=== PATIENT | female | born 1990 | race Caucasian/White ===

== ENCOUNTER 2016-12-11 14:37 | Emergency (ER) | payer BC, OTHER ==
[2016-12-11 15:26] VITALS: BP 127/68
--- NOTE | 2016-12-11 16:15 | UC ---
Throat Pain/Nasal Gonzalo HPI - HPI Summary HPI Summary: one week history of nasal congestion and enlarged lymph nodes. Fever today, cough is worsening, has a purulent nasal discharge. - History of Current Complaint Chief Complaint: UCGeneralIllness Stated Complaint: FLU SYMPTOMS Time Seen by Provider: 12/11/16 16:03 Hx Obtained From: Patient Hx Last Menstrual Period: 11/14/16 ?: No Onset/Duration: Gradual Onset, Lasting Days - 7 Severity: Moderate Cough: Productive - yellow Associated Signs & Symptoms: Positive: Hoarseness, Sinus Discomfort Related History: Seasonal Allergies - Epiglottits Risk Factors Epiglottis Risk Factors: Negative - Allergies/Home Medications Allergies/Adverse Reactions: Allergies Allergy/AdvReac Type Severity Reaction Status Date / Time Acetaminophen [From Excedrin] Allergy Severe Tingling Verified 12/11/16 15:26 Aspirin [From Excedrin] Allergy Severe Tingling Verified 12/11/16 15:26 Caffeine [From Excedrin] Allergy Severe Tingling Verified 12/11/16 15:26 Home Medications: Home Medications Dextromethorphan-Phenylephrine [Donna-[place] Plus Day Col] 1 cap PO DAILY [History Confirmed 12/11/16] PMH/Surg Hx/FS Hx/Imm Hx Previously Healthy: Yes - Surgical History Surgical History: Yes Surgery Procedure, Year, and Place: tonsilectomy - Family History Known Family History: Positive: Hypertension - mother - Social History 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 Respiratory: Cough Cardiovascular: Negative Gastrointestinal: Negative Genitourinary: Other - near end of cycle, not using contraception. Motor: Negative Neurovascular: Negative Musculoskeletal: Negative Neurological: Negative Psychological: Negative All Other Systems Reviewed And Are Negative: Yes Physical Exam Triage Information Reviewed: Yes Vital Signs: Initial Vital Signs Temp 99.6 F 12/11/16 15:22 Pulse 87 12/11/16 15:22 Resp 16 12/11/16 15:22 BP 127/68 12/11/16 15:22 Pulse Ox 100 12/11/16 15:22 Eye Exam: Normal Eyes: Positive: Conjunctiva Clear ENT: Positive: Pharyngeal erythema - post nasal drainage, past tonsillectomy, TMs normal, Other: - percussive tenderness maxillary sinuses Dental Exam: Normal Neck: Positive: Supple, Enlarged Nodes @ - right tonsillare Respiratory Exam: Normal Cardiovascular Exam: Normal Cardiovascular: Positive: RRR, No Murmur Musculoskeletal Exam: Normal Neurological Exam: Normal Psychological Exam: Normal Skin Exam: Normal Throat Pain/Nasal Course/Dx - Course Course Of Treatment: amoxicillin for sinusitis, tessalon perles to suppress cough - Differential Dx/Diagnosis Differential Diagnosis/HQI/PQRI: Influenza, Otitis Media, Pharyngitis, Sinusitis Provider Diagnoses: acute bilateral maxillary sinusitis. Discharge - Discharge Plan Condition: Stable Disposition: HOME Prescriptions: Amoxicillin (*) 875 mg PO BID #20 tab Benzonatate CAP* [Tessalon CAP*] 100 mg PO TID PRN #30 cap PRN Reason: Cough Patient Education Materials: Sinusitis (ED) Additional Instructions: begin amoxicillin for treatment of sinusitis. Tessalon perles will help with cough, but you can continue use of donna seltzer products. Hot packs to the sinuses and hot showers might help.
== END 2016-12-11 16:38 | disposition home or self-care (01) ==
LOC: UCCORT 14:37
DX: J01.00 Acute maxillary sinusitis, unspecified (principal); Z88.6 Allergy status to analgesic agent
CPT/HCPCS: 87502; 99212; G0463

== ENCOUNTER 2018-12-23 13:55 | Emergency (ER) | payer OTHER ==
[2018-12-23 14:29] VITALS: BP 118/67
--- NOTE | 2018-12-23 15:17 | UC ---
Throat Pain/Nasal Gonzalo HPI - HPI Summary HPI Summary: patient has had two weeks of sinus congestion, right ear pain and a swollen gland under the right ear. denies fever. - History of Current Complaint Chief Complaint: UCGeneralIllness Stated Complaint: DOW,SINUS PRESSURE,RT GLAND SWOLLEN Time Seen by Provider: 12/23/18 14:46 Hx Obtained From: Patient Hx Last Menstrual Period: 12/03/18 ?: No Onset/Duration: Sudden Onset, Lasting Weeks - 2 Severity: Mild Pain Intensity: 0 - Allergies/Home Medications Allergies/Adverse Reactions: Allergies Allergy/AdvReac Type Severity Reaction Status Date / Time acetaminophen Allergy See Comment Verified 12/23/18 14:25 [From Excedrin Extra Strength] aspirin Allergy See Comment Verified 12/23/18 14:25 [From Excedrin Extra Strength] caffeine Allergy See Comment Verified 12/23/18 14:25 [From Excedrin Extra Strength] PMH/Surg Hx/FS Hx/Imm Hx Previously Healthy: Yes - Surgical History Surgical History: Yes Surgery Procedure, Year, and Place: tonsilectomy - Family History Known Family History: Positive: Hypertension - mother - Social History Alcohol Use: Occasionally Substance Use Type: None Smoking Status (MU): Never Smoked Tobacco Review of Systems All Other Systems Reviewed And Are Negative: Yes Constitutional: Positive: Fatigue Skin: Positive: Negative Eyes: Positive: Negative ENT: Positive: Sore Throat, Ear Ache, Nasal Discharge, Sinus Pain/Tenderness Respiratory: Positive: Cough Cardiovascular: Positive: Negative Gastrointestinal: Positive: Negative Genitourinary: Positive: Negative Motor: Positive: Negative Neurovascular: Positive: Negative Musculoskeletal: Positive: Negative Neurological: Positive: Negative Psychological: Positive: Negative, Anxious Physical Exam Triage Information Reviewed: Yes Appearance: Well-Nourished, Ill-Appearing, Pain Distress Vital Signs: Initial Vital Signs Temp 98.8 F 12/23/18 14:25 Pulse 82 12/23/18 14:25 Resp 16 12/23/18 14:25 BP 118/67 12/23/18 14:25 Pulse Ox 100 12/23/18 14:25 Vital Signs Reviewed: Yes Eye Exam: Normal ENT: Positive: Pharyngeal erythema, Nasal congestion, Nasal drainage, TM bulging , TM dull - right ear, Tonsillar swelling, Sinus tenderness Dental Exam: Normal Neck: Positive: Supple, Tenderness @ - under right ear, Enlarged Nodes @ - under right ear Respiratory Exam: Normal Cardiovascular Exam: Normal Abdominal Exam: Normal Bowel Sounds: Positive: Present Musculoskeletal Exam: Normal Neurological Exam: Normal Psychological Exam: Normal Skin Exam: Normal Throat Pain/Nasal Course/Dx - Course Course Of Treatment: hx obtained, exam performed ,meds reviewed, treated for right otitis and sinusitis - Differential Dx/Diagnosis Differential Diagnosis/HQI/PQRI: Influenza, Laryngitis, Otitis Media, Pharyngitis, Sinusitis, URI Provider Diagnosis: Right otitis media, Lymph node enlargement Discharge - Sign-Out/Discharge Documenting (check all that apply): Patient Departure All imaging exams completed and their final reports reviewed: No Studies - Discharge Plan Condition: Stable Disposition: HOME Prescriptions: Amoxicillin PO (*) [Amoxicillin 875 MG (*)] 875 mg PO BID #20 tab Patient Education Materials: Ear Infection (ED) Referrals: No Primary Care Phys,NOPCP [Primary Care Provider] - Additional Instructions: 1. take the medication as prescribed. 2. Increase fluid intake and get plenty of rest. 3. Take a daily Claritin for the next two weeks 4. Follow up if not improving. - Billing Disposition and Condition Condition: STABLE Disposition: Home - Attestation Statements Provider Attestation: Because the patient is A&Ox3, has no focal neurologic findings, no midline c- spine tenderness, no evidence of intoxication and no painful distracting injuries there is no need to obtain radiographic studies to evaluate the C- spinie.
== END 2018-12-23 15:22 | disposition home or self-care (01) ==
LOC: UCCORT 13:55
DX: H66.91 Otitis media, unspecified, right ear (principal); R59.0 Localized enlarged lymph nodes; R09.81 Nasal congestion; Z88.8 Allergy status to other drugs, medicaments and biological substances
CPT/HCPCS: 99212; G0463

== ENCOUNTER 2019-08-29 16:35 | Emergency (ER) | payer BC, OTHER ==
[2019-08-29 18:08] VITALS: BP 121/80
--- NOTE | 2019-08-29 18:18 | ED ---
Throat Pain/Nasal Congestion - HPI Summary HPI Summary: 28 yr old female with the complaint of sinus pressure, post nasal drip, mild cough. Onset of symptoms about three days. No fever. She has been exposed to ill exposures. No other complaints. - History of Current Complaint Chief Complaint: UCRespiratory Time Seen by Provider: 08/29/19 18:10 - Allergies/Home Medications Allergies/Adverse Reactions: Allergies Allergy/AdvReac Type Severity Reaction Status Date / Time acetaminophen Allergy See Comment Verified 08/29/19 18:02 [From Excedrin Extra Strength] aspirin Allergy See Comment Verified 08/29/19 18:02 [From Excedrin Extra Strength] caffeine Allergy See Comment Verified 08/29/19 18:02 [From Excedrin Extra Strength] Home Medications: Home Medications [id number]/Iron Fum/Folic/Docusate [ 19 Tablet] 1 tab DAILY 08/29/19 [ History Confirmed 08/29/19] PMH/Surg Hx/FS Hx/Imm Hx - Surgical History Surgery Procedure, Year, and Place: tonsilectomy Infectious Disease History: No Infectious Disease History: Denies: History Other Infectious Disease, Traveled Outside the in Last 30 Days - Family History Known Family History: Positive: Hypertension - mother - Social History Occupation: Employed Full-time Alcohol Use: Occasionally Substance Use Type: Reports: None Smoking Status (MU): Never Smoked Tobacco Review of Systems Constitutional: Negative Positive: Nasal Discharge Positive: Cough All Other Systems Reviewed And Are Negative: Yes Physical Exam Triage Information Reviewed: Yes Vital Signs On Initial Exam: Initial Vitals Temp Pulse Resp BP Pulse Ox 98.2 F 77 16 121/80 100 08/29/19 18:03 08/29/19 18:03 08/29/19 18:03 08/29/19 18:03 08/29/19 18:03 Vital Signs Reviewed: Yes Appearance: Positive: Well-Appearing, No Pain Distress Skin: Positive: Warm, Skin Color Reflects Adequate Perfusion Head/Face: Positive: Normal Head/Face Inspection Eyes: Positive: EOMI ENT: Positive: Normal ENT inspection Neck: Positive: Nontender Respiratory/Lung Sounds: Positive: Clear to Auscultation, Breath Sounds Present Cardiovascular: Positive: RRR. Negative: Murmur Abdomen Description: Positive: Nontender Musculoskeletal: Positive: Strength/ROM Intact Neurological: Positive: Sensory/Motor Intact, Alert, Oriented to Person Place, Time, CN Intact II-III, Normal Gait, Speech Normal Psychiatric: Positive: Normal - Lynn Coma Scale Best Eye Response: 4 - Spontaneous Best Motor Response: 6 - Obeys Commands Best Verbal Response: 5 - Oriented Coma Scale Total: 15 Diagnostics - Vital Signs Vital Signs Temp Pulse Resp BP Pulse Ox 08/29/19 18:03 98.2 F 77 16 121/80 100 - Laboratory Lab Statement: Any lab studies that have been ordered have been reviewed, and results considered in the medical decision making process. EENT Course/Dx - Course Course Of Treatment: 28 yr old with sinusitis. Rx with Augmentin. FU with PMD. - Diagnoses Provider Diagnoses: Sinusitis Discharge ED - Sign-Out/Discharge Documenting (check all that apply): Patient Departure All imaging exams completed and their final reports reviewed: No Studies - Discharge Plan Condition: Good Disposition: HOME Prescriptions: Amoxicillin/Clavulanate TAB* [Augmentin TAB 875*] 875 mg PO BID #20 tab Patient Education Materials: Sinusitis (ED) Referrals: No Primary Care Phys,NOPCP [Primary Care Provider] - [facility] [place] [place] [facility] [Outside] - 2 Days - Billing Disposition and Condition Condition: GOOD Disposition: Home
== END 2019-08-29 18:35 | disposition home or self-care (01) ==
LOC: UCCORT 16:35
DX: J32.9 Chronic sinusitis, unspecified (principal); Z88.6 Allergy status to analgesic agent
CPT/HCPCS: 99212; G0463